=== PATIENT | female | born 1960 | race Caucasian/White ===

== ENCOUNTER 2022-01-15 05:40 | Emergency (ER) | payer OTHER, MEDICARE ==
[~2022-01-15] VITALS: Ht 177.8 cm; Wt 103.7 kg
[2022-01-15] MEDS ORDERED: LISINOPRIL-HCT1 EAC1 PO (06:00)
[2022-01-15] MEDS ORDERED: HYDROCODON-ACE1 EA10 PO (08:19)
== END 2022-01-15 08:26 | disposition home or self-care (01) ==
LOC: ED 05:40
DX: R07.89 Other chest pain (principal); I10 Essential (primary) hypertension; Z79.899 Other long term (current) drug therapy; W01.0XXA Fall on same level from slipping, tripping and stumbling without subsequent striking against object, initial encounter
CPT/HCPCS: 36415; 71046; 74177; 80053; 81001; 85025; 96361; 96375; 99284-25; J1170; J2405; J7030; Q9967